=== PATIENT | female | born 1950 ===

== ENCOUNTER 2024-06-29 16:01 | Inpatient (IN) | payer MEDICARE, MEDICAID ==
[~2024-06-29] VITALS: Ht 157.5 cm; Wt 36.2 kg
[2024-06-29] MEDS ORDERED: 0.9% SODIUM CHLORIDE 10 ML SYRINGE IVP PRN (17:00)
[2024-06-29 17:17] LABS: BASOPHILS % (AUTO) 0.9 % (0.0-2.0); EOSINOPHILS % (AUTO) 1.1 % (1.0-6.0); HEMATOCRIT 45.8 % (36-46); LYMPHOCYTES # (AUTO) 1.8 K/uL (1.0-4.8); LYMPHOCYTES % (AUTO) 18.2 % (22.0-44.0); MEAN CORPUSCULAR HEMOGLOBIN 30.8 pg (26.0-34.0); MEAN CORPUSCULAR HGB CONC 32.6 G/dL (31.0-37.0); MEAN CORPUSCULAR VOLUME 94 fL (80-100); MONOCYTES # (AUTO) 0.7 K/uL (0.1-1.0); MONOCYTES % (AUTO) 6.9 % (2.0-9.0); NEUTROPHILS # (AUTO) 7.1 K/uL (1.8-7.7); NEUTROPHILS % (AUTO) 72.9 % (40.0-70.0); PLATELET COUNT (AUTO) 377 K/uL (150-450); RED BLOOD CELL COUNT(AUTO) 4.86 MIL/uL (4.00-5.20); RED CELL DISTRIBUTION WIDTH 14.8 % (11.5-14.5); WHITE BLOOD COUNT (AUTO) 9.8 K/uL (4.5-11.0)
[2024-06-29] MEDS: SODIUM CHLORIDE 0.9% 700 ML IV ONE (17:18)
[2024-06-29] MEDS: CefTRIAXone 1 GM/DEXTROSE 50 ML IV ONE (17:19)
[2024-06-29 17:28] LABS: APPEARANCE,URINE TURBID (CLEAR); BILIRUBIN,URINE NEGATIVE (NEGATIVE); GLUCOSE, URINE (UA) NEGATIVE (NEGATIVE); KETONES,URINE NEGATIVE (NEGATIVE); LEUKOCYTE ESTERASE ,URINE SMALL (NEGATIVE); NITRATE,URINE NEGATIVE (NEGATIVE); OCCULT BLOOD,URINE TRACE (NEGATIVE); PH,URINE 7.5 (5.0-8.0); PROTEIN,URINE 100-200,SEE CONFIRM mg/dL (NEGATIVE); SPECIFIC GRAVITIY, URINE 1.017 (1.003-1.030); UROBILINOGEN,URINE <=1.0 mg/dL (<=1.0)
[2024-06-29 17:30] LABS: ANION GAP 7 mmol/L (8-16); CALCIUM, TOTAL 10.3 mg/dL (8.8-10.5); CARBON DIOXIDE 30 mmol/L (22-29); CHLORIDE 110 mmol/L (98-107); CREATININE 0.71 mg/dL (0.60-1.30); GLOMERULAR FILTR. RATE CALC > 60 mL/min (>60); GLUCOSE,RANDOM 105 mg/dL (70-110); POTASSIUM 4.4 mmol/L (3.5-5.1); PROTHROMBIN TIME 10.8 SEC (9.4-11.6); SODIUM SERUM 147 mmol/L (136-145); UREA NITROGEN, BLOOD 32 mg/dL (7-18)
[2024-06-29 17:32] LABS: COLOR,URINE YELLOW (YELLOW)
[2024-06-29 17:36] LABS: ALANINE AMINOTRANSFERASE 44 U/L (12-78); ALBUMIN 3.5 g/dL (3.4-5.0); ALKALINE PHOSPHATASE 87 U/L (46-116); ASPARTATE AMINOTRANSFERASE 36 U/L (15-37); BILIRUBIN,TOTAL 0.5 mg/dL (0.1-1.0)
[2024-06-29 17:37] LABS: BACTERIA,URINE Many /HPF (None Seen); SQUAMOUS EPITHELIAL CELL,UR Few /LPF (None Seen); SULFOSALICYLIC ACID,URINE Trace (Negative)
[2024-06-29 17:45] LABS: LACTIC ACID 3.2 mmol/L (0.4-2.0); TROPONIN I-HIGH SENSITIVITY 55 ng/L (<51)
[2024-06-29] MEDS ORDERED: BISACODYL 10 MG RECTAL RECTAL SUPPOSITORY PR PRN (20:45)
[2024-06-29] MEDS ORDERED: ZOLPIDEM TARTRATE 5 MG TABLET PO PRN (20:45)
[2024-06-29] MEDS ORDERED: HYDROCODONE/ACETAMINOPHEN 5-325 MG TABLET PO PRN (20:45)
[2024-06-29] MEDS ORDERED: MAGNESIUM HYDROXIDE SUSPENSION 30 ML UDCUP PO PRN (20:45)
[2024-06-29] MEDS ORDERED: MORPHINE SULFATE 2 MG/ML SYRINGE IVP PRN (20:45)
[2024-06-29] MEDS ORDERED: ONDANSETRON HCL 4 MG/2 ML VIAL IVP PRN (20:45)
[2024-06-29] MEDS: DOCUSATE SODIUM 100 MG CAPSULE PO SCH (20:52)
[2024-06-29 22:05] VITALS: BP 131/74; PULSE 90; RESP 15; TEMP 98.7; O2SAT 94
[2024-06-29] MEDS: HEPARIN SODIUM,PORCINE 5,000 UNITS/ML VIAL SQ SCH (23:44)
[2024-06-30 00:37] VITALS: BP 103/61; PULSE 88; RESP 16; TEMP 98.7; O2SAT 93
[2024-06-30 03:43] VITALS: BP 123/69; PULSE 98; RESP 15; TEMP 98.8; O2SAT 99
[2024-06-30 07:17] LABS: BASOPHILS % (AUTO) 0.7 % (0.0-2.0); EOSINOPHILS % (AUTO) 1.8 % (1.0-6.0); HEMATOCRIT 39.5 % (36-46); LYMPHOCYTES # (AUTO) 1.3 K/uL (1.0-4.8); LYMPHOCYTES % (AUTO) 14.7 % (22.0-44.0); MEAN CORPUSCULAR HEMOGLOBIN 31.2 pg (26.0-34.0); MEAN CORPUSCULAR VOLUME 95 fL (80-100); MONOCYTES # (AUTO) 0.8 K/uL (0.1-1.0); MONOCYTES % (AUTO) 8.8 % (2.0-9.0); NEUTROPHILS # (AUTO) 6.7 K/uL (1.8-7.7); PLATELET COUNT (AUTO) 326 K/uL (150-450); RED BLOOD CELL COUNT(AUTO) 4.17 MIL/uL (4.00-5.20); RED CELL DISTRIBUTION WIDTH 14.6 % (11.5-14.5)
[2024-06-30 07:22] VITALS: BP 102/55; PULSE 93; RESP 16; TEMP 97.8; O2SAT 95
[2024-06-30 07:24] LABS: ANION GAP 7 mmol/L (8-16); CALCIUM, TOTAL 8.9 mg/dL (8.8-10.5); CARBON DIOXIDE 32 mmol/L (22-29); CHLORIDE 111 mmol/L (98-107); GLOMERULAR FILTR. RATE CALC > 60 mL/min (>60); GLUCOSE,RANDOM 91 mg/dL (70-110); POTASSIUM 3.4 mmol/L (3.5-5.1); SODIUM SERUM 149 mmol/L (136-145); UREA NITROGEN, BLOOD 28 mg/dL (7-18)
[2024-06-30] MEDS: PANTOPRAZOLE SODIUM 40 MG DR TABLET PO SCH (08:23)
[2024-06-30 11:37] VITALS: BP 132/75; PULSE 93; RESP 16; TEMP 97.5; O2SAT 94
[2024-06-30 16:03] VITALS: BP 123/69; PULSE 108; RESP 16; TEMP 97.8
[2024-06-30] MEDS: DEXTROSE 5%-WATER 1,000 ML IV ONE (16:06)
[2024-06-30] MEDS: CefTRIAXone 1 GM/DEXTROSE 50 ML IV SCH (16:26)
[2024-06-30 20:34] VITALS: BP 99/55; PULSE 102; RESP 17; TEMP 98.3; O2SAT 98
[2024-06-30] MEDS ORDERED: SODIUM CHLORIDE 0.9% 1,000 ML ONE (23:59)
[2024-07-01] VITALS (7 sets, daily range): BP systolic 119–150; BP diastolic 65–83; PULSE 84–107; RESP 16–18; TEMP 97.5–98.1; O2SAT 92–98
[2024-07-01] MEDS: POTASSIUM CHLORIDE 20 MEQ ER TABLET PO ONE (03:54)
[2024-07-01 06:29] LABS: BASOPHILS % (AUTO) 0.3 % (0.0-2.0); EOSINOPHILS % (AUTO) 3.3 % (1.0-6.0); HEMATOCRIT 35.7 % (36-46); LYMPHOCYTES % (AUTO) 15.9 % (22.0-44.0); MEAN CORPUSCULAR HEMOGLOBIN 31.4 pg (26.0-34.0); MEAN CORPUSCULAR HGB CONC 33.7 G/dL (31.0-37.0); MEAN CORPUSCULAR VOLUME 93 fL (80-100); MONOCYTES # (AUTO) 0.5 K/uL (0.1-1.0); MONOCYTES % (AUTO) 7.3 % (2.0-9.0); NEUTROPHILS # (AUTO) 4.8 K/uL (1.8-7.7); NEUTROPHILS % (AUTO) 73.2 % (40.0-70.0); PLATELET COUNT (AUTO) 281 K/uL (150-450); RED BLOOD CELL COUNT(AUTO) 3.83 MIL/uL (4.00-5.20); RED CELL DISTRIBUTION WIDTH 14.3 % (11.5-14.5); WHITE BLOOD COUNT (AUTO) 6.5 K/uL (4.5-11.0)
[2024-07-01 06:44] LABS: ANION GAP 8 mmol/L (8-16); CALCIUM, TOTAL 8.4 mg/dL (8.8-10.5); CARBON DIOXIDE 28 mmol/L (22-29); CHLORIDE 101 mmol/L (98-107); GLOMERULAR FILTR. RATE CALC > 60 mL/min (>60); GLUCOSE,RANDOM 117 mg/dL (70-110); PHOSPHORUS 2.6 mg/dL (2.5-4.9); POTASSIUM 3.5 mmol/L (3.5-5.1); SODIUM SERUM 137 mmol/L (136-145); UREA NITROGEN, BLOOD 18 mg/dL (7-18)
[2024-07-01] MEDS ORDERED: SODIUM CHLORIDE 0.9% 500 ML IV ONE (16:41)
[2024-07-02 04:02] VITALS: BP 115/58; PULSE 69; RESP 18; TEMP 97.6; O2SAT 95
[2024-07-02 06:49] LABS: BASOPHILS % (AUTO) 0.7 % (0.0-2.0); HEMATOCRIT 36.5 % (36-46); HEMOGLOBIN 12.4 g/dL (12.0-16.0); LYMPHOCYTES # (AUTO) 1.1 K/uL (1.0-4.8); LYMPHOCYTES % (AUTO) 18.7 % (22.0-44.0); MEAN CORPUSCULAR HEMOGLOBIN 31.2 pg (26.0-34.0); MEAN CORPUSCULAR VOLUME 92 fL (80-100); MONOCYTES # (AUTO) 0.4 K/uL (0.1-1.0); MONOCYTES % (AUTO) 6.9 % (2.0-9.0); NEUTROPHILS # (AUTO) 4.2 K/uL (1.8-7.7); NEUTROPHILS % (AUTO) 68.7 % (40.0-70.0); PLATELET COUNT (AUTO) 304 K/uL (150-450); RED BLOOD CELL COUNT(AUTO) 3.97 MIL/uL (4.00-5.20); RED CELL DISTRIBUTION WIDTH 14.3 % (11.5-14.5); WHITE BLOOD COUNT (AUTO) 6.1 K/uL (4.5-11.0)
[2024-07-02 06:59] LABS: ANION GAP 6 mmol/L (8-16); CARBON DIOXIDE 29 mmol/L (22-29); CHLORIDE 102 mmol/L (98-107); CREATININE 0.48 mg/dL (0.60-1.30); GLOMERULAR FILTR. RATE CALC > 60 mL/min (>60); GLUCOSE,RANDOM 97 mg/dL (70-110); POTASSIUM 3.6 mmol/L (3.5-5.1); SODIUM SERUM 137 mmol/L (136-145); UREA NITROGEN, BLOOD 8 mg/dL (7-18)
[2024-07-02 08:00] VITALS: BP 139/62; PULSE 90; RESP 18; TEMP 98; O2SAT 95
[2024-07-02] MEDS: THIAMINE 100 MG TABLET PO SCH (08:46)
[2024-07-02] MEDS: FOLIC ACID 0.4 MG TABLET PO SCH (08:46)
[2024-07-02 11:04] VITALS: BP 131/73; PULSE 80; RESP 16; TEMP 98.5; O2SAT 98
[2024-07-02] MEDS ORDERED: SODIUM CHLORIDE 0.9% 500 ML IV ONE (15:29)
[2024-07-02] MEDS: VANCOMYCIN 1GM/WATER(PEG/NADA) 200 ML IV ONE (16:00)
[2024-07-02 16:49] VITALS: BP 145/85; PULSE 74; RESP 20; TEMP 97.8; O2SAT 91
[2024-07-02 20:25] VITALS: BP 128/70; PULSE 105; RESP 18; TEMP 97.6; O2SAT 97
[2024-07-03 04:31] VITALS: BP 144/76; PULSE 107; RESP 20; TEMP 97.6; O2SAT 95
[2024-07-03 07:42] VITALS: BP 122/75; PULSE 92; RESP 14; TEMP 97.8; O2SAT 98
[2024-07-03] MEDS: VANCOMYCIN 500 MG/WATER(PEG) 100 ML IV SCH (08:51)
[2024-07-03 20:57] VITALS: BP 126/70; PULSE 99; RESP 18; TEMP 98.3; O2SAT 98
[2024-07-04 06:13] VITALS: BP 133/70; PULSE 105; RESP 18; TEMP 97.9; O2SAT 98
[2024-07-04 07:35] LABS: ANION GAP 7 mmol/L (8-16); CALCIUM, TOTAL 9.3 mg/dL (8.8-10.5); CARBON DIOXIDE 29 mmol/L (22-29); CHLORIDE 101 mmol/L (98-107); CREATININE 0.52 mg/dL (0.60-1.30); GLOMERULAR FILTR. RATE CALC > 60 mL/min (>60); GLUCOSE,RANDOM 108 mg/dL (70-110); SODIUM SERUM 137 mmol/L (136-145); UREA NITROGEN, BLOOD 9 mg/dL (7-18); VANCOMYCIN,RANDOM 6.1 mcg/mL (25.0-50.0)
[2024-07-04] MEDS: VANCOMYCIN 500 MG/WATER(PEG) 100 ML IV SCH (15:36)
[2024-07-04 16:00] VITALS: BP 136/79; PULSE 67; RESP 18; TEMP 98.7; O2SAT 95
[2024-07-04 20:20] VITALS: BP 123/81; PULSE 60; RESP 17; TEMP 98.2; O2SAT 90
[2024-07-04] MEDS: ACETAMINOPHEN 325 MG TABLET PO PRN (21:17)
[2024-07-05 04:55] VITALS: BP 126/58; PULSE 57; RESP 18; TEMP 96.7; O2SAT 90
[2024-07-05 07:48] LABS: ALANINE AMINOTRANSFERASE 52 U/L (12-78); ALBUMIN 2.4 g/dL (3.4-5.0); ALKALINE PHOSPHATASE 67 U/L (46-116); ANION GAP 10 mmol/L (8-16); ASPARTATE AMINOTRANSFERASE 39 U/L (15-37); BILIRUBIN,TOTAL 0.3 mg/dL (0.1-1.0); CALCIUM, TOTAL 8.8 mg/dL (8.8-10.5); CARBON DIOXIDE 25 mmol/L (22-29); CHLORIDE 102 mmol/L (98-107); CREATININE 0.39 mg/dL (0.60-1.30); GLOMERULAR FILTR. RATE CALC > 60 mL/min (>60); GLUCOSE,RANDOM 104 mg/dL (70-110); POTASSIUM 3.6 mmol/L (3.5-5.1); SODIUM SERUM 137 mmol/L (136-145); UREA NITROGEN, BLOOD 12 mg/dL (7-18)
[2024-07-05 08:18] VITALS: BP 162/89; PULSE 96; RESP 19; TEMP 98.1; O2SAT 90
[2024-07-05 09:15] VITALS: O2SAT 94
[2024-07-05 16:30] VITALS: BP 132/85; PULSE 74; RESP 18; TEMP 97.9; O2SAT 96
[2024-07-05 20:07] VITALS: BP 129/68; PULSE 73; RESP 17; TEMP 97.8; O2SAT 93
[2024-07-06 05:07] VITALS: BP 131/66; PULSE 102; RESP 18; TEMP 97.6; O2SAT 98
[2024-07-06 07:56] LABS: ANION GAP 6 mmol/L (8-16); CALCIUM, TOTAL 9.1 mg/dL (8.8-10.5); CARBON DIOXIDE 28 mmol/L (22-29); CHLORIDE 102 mmol/L (98-107); CREATININE 0.39 mg/dL (0.60-1.30); GLOMERULAR FILTR. RATE CALC > 60 mL/min (>60); GLUCOSE,RANDOM 107 mg/dL (70-110); POTASSIUM 3.8 mmol/L (3.5-5.1); SODIUM SERUM 136 mmol/L (136-145); UREA NITROGEN, BLOOD 13 mg/dL (7-18)
[2024-07-06 08:00] VITALS: BP 135/64; PULSE 94; RESP 18; TEMP 98.2; O2SAT 99
[2024-07-06 16:23] VITALS: BP 122/53; PULSE 94; RESP 18; TEMP 97.9; O2SAT 97
[2024-07-06 19:55] VITALS: BP 126/66; PULSE 95; RESP 18; TEMP 98.3; O2SAT 96
[2024-07-07 04:17] VITALS: BP 138/74; PULSE 94; RESP 18; TEMP 98; O2SAT 98
[2024-07-07 08:06] VITALS: BP 148/75; PULSE 87; RESP 18; TEMP 98.2; O2SAT 98
[2024-07-07 16:08] VITALS: BP 125/75; PULSE 53; RESP 18; TEMP 98.8; O2SAT 96
[2024-07-07 20:39] VITALS: BP 134/88; PULSE 108; RESP 20; TEMP 98.2; O2SAT 100
[2024-07-08 05:25] VITALS: BP 132/70; PULSE 105; RESP 20; TEMP 97.8; O2SAT 97
[2024-07-08 08:07] VITALS: BP 134/76; PULSE 101; RESP 19; TEMP 98; O2SAT 99
[2024-07-08 15:38] VITALS: BP 126/77; PULSE 100; RESP 19; TEMP 98.2; O2SAT 98
[2024-07-08 20:48] VITALS: BP 114/61; PULSE 98; RESP 18; TEMP 98.3; O2SAT 98
[2024-07-09 04:37] VITALS: BP 126/70; PULSE 97; RESP 18; TEMP 98; O2SAT 99
[2024-07-09 07:28] LABS: BASOPHILS % (AUTO) 1.3 % (0.0-2.0); EOSINOPHILS % (AUTO) 3.6 % (1.0-6.0); HEMOGLOBIN 11.4 g/dL (12.0-16.0); LYMPHOCYTES % (AUTO) 14.3 % (22.0-44.0); MEAN CORPUSCULAR HEMOGLOBIN 31.4 pg (26.0-34.0); MEAN CORPUSCULAR HGB CONC 33.5 G/dL (31.0-37.0); MEAN CORPUSCULAR VOLUME 94 fL (80-100); MONOCYTES # (AUTO) 0.7 K/uL (0.1-1.0); MONOCYTES % (AUTO) 9.8 % (2.0-9.0); NEUTROPHILS # (AUTO) 4.7 K/uL (1.8-7.7); PLATELET COUNT (AUTO) 409 K/uL (150-450); RED BLOOD CELL COUNT(AUTO) 3.63 MIL/uL (4.00-5.20); RED CELL DISTRIBUTION WIDTH 15.2 % (11.5-14.5); WHITE BLOOD COUNT (AUTO) 6.7 K/uL (4.5-11.0)
[2024-07-09 07:37] LABS: ANION GAP 5 mmol/L (8-16); CALCIUM, TOTAL 9.3 mg/dL (8.8-10.5); CARBON DIOXIDE 29 mmol/L (22-29); CHLORIDE 102 mmol/L (98-107); CREATININE 0.39 mg/dL (0.60-1.30); GLOMERULAR FILTR. RATE CALC > 60 mL/min (>60); GLUCOSE,RANDOM 111 mg/dL (70-110); POTASSIUM 4.2 mmol/L (3.5-5.1); SODIUM SERUM 136 mmol/L (136-145); UREA NITROGEN, BLOOD 13 mg/dL (7-18)
[2024-07-09 08:53] VITALS: BP 135/66; PULSE 97; RESP 18; TEMP 98; O2SAT 97
[2024-07-09] MEDS ORDERED: FOLI0.4T6 PO (13:46)
[2024-07-09] MEDS ORDERED: DOCU-385 PO (13:46)
[2024-07-09] MEDS ORDERED: PANT-31 PO (13:46)
[2024-07-09] MEDS ORDERED: ACET-2247 PO (13:47)
[2024-07-09] MEDS ORDERED: ZOLP-280 PO (13:49)
[2024-07-09 15:33] VITALS: BP 128/67; PULSE 118; RESP 18; TEMP 98.1; O2SAT 97
[2024-07-09 17:48] VITALS: BP 116/68; PULSE 105; RESP 18; TEMP 97.7; O2SAT 99
[2024-07-09 20:00] VITALS: BP 140/77; PULSE 116; RESP 18; TEMP 98.4; O2SAT 98
[2024-07-10 00:41] VITALS: BP 133/76; PULSE 115; RESP 17; TEMP 98.3; O2SAT 99
[2024-07-10 04:50] VITALS: BP 150/72; PULSE 101; RESP 18; TEMP 98.5; O2SAT 99
[2024-07-10 08:26] VITALS: BP 119/69; PULSE 95; RESP 19; TEMP 97.7; O2SAT 99
[2024-07-10 11:46] VITALS: BP 128/84; PULSE 102; RESP 18; TEMP 98.2; O2SAT 97
[2024-07-10] MEDS ORDERED: CARVEDILOL 3.125 MG TABLET PO ONE (15:45)
[2024-07-10 16:31] VITALS: BP 121/63; PULSE 99; RESP 18; TEMP 98.6; O2SAT 98
[2024-07-10 20:28] VITALS: BP 132/68; PULSE 108; RESP 18; TEMP 98.1; O2SAT 96
[2024-07-10] MEDS ORDERED: CARVEDILOL 3.125 MG TABLET PO SCH (21:00)
== END 2024-07-10 21:05 | DRG 871 ==
LOC: EMS 16:01 → EDH 18:37 → 5S 22:07 → 4E 07-02 12:28 → 5N 07-09 17:23
PROVIDERS: ADMIT Internal Medicine; ATTEND Internal Medicine
DX: A41.89 Other specified sepsis (principal); E43 Unspecified severe protein-calorie malnutrition; G93.41 Metabolic encephalopathy; R64 Cachexia; E87.0 Hyperosmolality and hypernatremia; N39.0 Urinary tract infection, site not specified; Z68.1 Body mass index [BMI] 19.9 or less, adult; R62.7 Adult failure to thrive; M79.605 Pain in left leg; F03.90 Unspecified dementia, unspecified severity, without behavioral disturbance, psychotic disturbance, mood disturbance, and anxiety; E86.0 Dehydration
CPT/HCPCS: 71045; 73503; 80048; 80053; 80202; 81001; 81002; 83605; 83735; 84100; 84145; 84439; 84443; 84484; 85025; 85610; 87040; 87077; 87081; 87086; 87205; 87481; 93005; 97162; 97165; 99291; G0378; J0696; J1644; J7030; J7040; J7060; 36415-L1; 36415-TC